=== PATIENT | female | born 1935 | race Caucasian/White ===

== ENCOUNTER 2016-08-06 06:29 | Emergency (ER) | payer OTHER ==
[~2016-08-06] VITALS: Ht 157.4 cm; Wt 59.0 kg
[~2016-08-06 06:29] MED LIST: OCUFLOX 5 ML5 M1 OP; PRED FORTE 5 ML5 ML OP; TIMOLOL MALEAT PO; ZESTRIL20 MG PO; [UNRECOGNIZED DRUG - OTHER] TP
[2016-08-06 06:38] VITALS: BP 146/63
[2016-08-06 07:19] LABS: BASO # 0.1 10*3/uL (0.0-0.1); BASO % 0.7 % (0.0-1.0); EOS # 0.1 10*3/uL (0.0-0.4); EOS % 1.7 % (1.0-4.0); HEMATOCRIT 38.6 % (37.0-47.0); HEMOGLOBIN 13.9 g/dl (12.0-16.0); LYMPH # 1.7 10*3/uL (1.3-4.4); LYMPH % 22.4 % (27.0-41.0); MEAN CELL VOLUME 89.4 fl (81.0-99.0); MEAN CORPUSCULAR HGB 32.2 pg (27.0-31.0); MEAN PLATELET VOLUME 8.8 fl (9.6-12.3); MONO # 0.8 10*3/uL (0.1-1.0); MONO % 11.3 % (3.0-9.0); NEUT # 4.7 10*3/uL (2.3-7.9); NEUT % 63.6 % (47.0-73.0); PLATELET COUNT AUTOMATED 260 10*3/uL (130-400); RED BLOOD COUNT 4.32 10*6/uL (4.10-5.10); RED CELL DISTRI WIDTH 11.9 % (0-14.5); WHITE BLOOD COUNT 7.4 10*3/uL (4.8-10.8)
[2016-08-06 07:35] LABS: ALBUMIN 3.5 gm/dl (3.1-4.5); ALKALINE PHOSPHATASE 54 U/L (45-117); BILIRUBIN, TOTAL 0.5 mg/dl (0.2-1.0); BUN 8 mg/dl (7-24); CARBON DIOXIDE 30 mmol/L (21-32); CHLORIDE 90 mmol/L (98-107); EST GLOM FILT AFRICAN AMERICAN > 60 ml/min; GLUCOSE 113 mg/dL (65-99); POTASSIUM 3.2 mmol/L (3.5-5.1); SGOT/AST 17 IU/L (3-35); SGPT/ALT 21 U/L (12-78); SODIUM 130 mmol/L (136-145); TOTAL PROTEIN 6.8 gm/dL (6.4-8.2)
[2016-08-06] MEDS ORDERED: MIRALAX POWDER17 G1 PO (11:49)
== END 2016-08-06 11:57 | disposition home or self-care (01) ==
LOC: ED 06:29
PROVIDERS: Emergency Medicine
DX: K59.00 Constipation, unspecified (principal); Z90.49 Acquired absence of other specified parts of digestive tract; Z79.899 Other long term (current) drug therapy

== ENCOUNTER 2016-08-17 04:17 | Inpatient (IN) | payer OTHER ==
[~2016-08-17] VITALS: Ht 157.5 cm; Wt 66.0 kg
[2016-08-17] VITALS (8 sets, daily range): BP systolic 106–122; BP diastolic 44–76
--- NOTE | ~2016-08-17 | CON ---
[place], [place] REPORT OF CONSULTATION NAME: DELANO ZAPATA UNIT #: [id number] ROOM: 523 DOCTOR: FRANCESCO ARIASGREG BIRTHDATE: [birth year] DOS: 08/19/2016 GASTROENDOSCOPIC CONSULTATION REPORT HISTORY OF PRESENT ILLNESS: This is an 81-year-old patient, who has presented with chief complaint of gastric abdominal pain and dark stool. The patient has been admitted through the Emergency Room; however, the patient has been experiencing some nausea and vomiting as well. Initial blood work in the Emergency Room showed H and H of 10 and 27. Comprehensive metabolic panel, electrolyte shows severe hyponatremia of 125 and hypokalemia was noticed. Her lipase was 230, phosphorus and magnesium were within normal limits. Her CBC differential shows further drop in H and H to 8 and 23. Iron binding was 295, normal; however, iron level was 33, low ferritin was 333. Her comprehensive metabolic panel was reassessed. Liver function tests remained normal. Phosphorus normal. PAST MEDICAL HISTORY: Constipation. PAST SURGICAL HISTORY: Cholecystectomy, cataract, podiatric, D and C, hysterectomy. MEDICATIONS: List has been reviewed. ALLERGIES: No known medication. FAMILY HISTORY: Noncontributory. REVIEW OF SYSTEMS: HEENT: Denies double vision, blurred vision. RESPIRATORY: Denies shortness of breath. CARDIOVASCULAR: Denies chest pain. DIGESTIVE SYSTEM: Nausea and vomiting. PHYSICAL EXAMINATION: VITAL SIGNS: Stable. HEENT: Head is normocephalic, nontraumatic. Mouth and buccal mucosa are benign. NECK: Supple. No thyromegaly. No cervical lymphadenopathy. CHEST: Symmetric anatomy, equal expansion. No wheeze. No rhonchi. HEART: Normal sinus rhythm, no gallop, no murmur. ABDOMEN: Soft. No hepato-organomegaly. Bowel sounds present. No pulsatile mass. Scars of surgery are noticed. EXTREMITIES: No cyanosis, no pedal edema. NEUROLOGIC: Alert and oriented to time, place, person. IMPRESSION: Severe hyponatremia and associated nausea, epigastric pain. Hypokalemia, status post correction. Gradual drop in hemoglobin and hematocrit. The patient has been on a combination of lisinopril and hydrochlorothiazide. Potassium has been supplemented. Other medications reviewed. [place], [place] REPORT OF CONSULTATION NAME: DELANO ZAPATA UNIT #: [id number] ROOM: 523 DOCTOR: FRANCESCO ARIAS,GREG BIRTHDATE: [birth year] PLAN AND DISCUSSION: We are going to look into the source of nausea, vomiting. In addition to the diuretics that she has been on, furthermore we are going to investigate the source of anemia with endoscopic assessment of upper GI tract and perhaps future colonoscopy as well. Supportive management otherwise as dictated in the chart. GREG MAYA MD CM:CONSTR:REPORT OF CONSULTATION 1602 08/20/16 0552 interface
--- NOTE | ~2016-08-17 | O ---
[place], [place] OPERATIVE NOTE NAME: DELANO ZAPATA UNIT #: [id number] ROOM: 523 DOCTOR: GREG MAYA MD BIRTHDATE: [birth year] DOS: 08/19/2016 GASTROENDOSCOPIC REPORT INDICATIONS: An 81 years old patient who has presented with chief complaint of anemia, drop in H and H to 8 and 24, epigastric distress, consultation has been dictated. PROCEDURE: Today's procedure part of investigation is panendoscopy plus biopsy. PREMEDICATION: Versed and Diprivan. SCOPE: Olympus forward-viewing gastroscope Q10 video. REPORT: After putting the patient in the left lateral position and application of lubricant to the scope, the scope was introduced. Thereafter, under direct visualization, I advanced through the length of the esophagus without difficulty. Esophagus and cervicothoracic distally were carefully examined. Gastric pouch was entered. Ulceration is approximately 1.5 cm in diameter in antrum was identified, photographed. It is well scarred, margin of which was biopsied. Duodenal bulb, second and third part within normal limits. The patient extubated, tolerated procedure well. IMPRESSION: Antral ulcer, status post biopsy. PLAN AND DISCUSSION: We are going to continue with Carafate 1 g q.i.d. at the present time and we will continue with Protonix 40 mg q. day soft diet, clinical reassessment. Follow up on H and H tomorrow. GREG MAYA MD CM:OPRECORD:OPERATIVE NOTE [id number] [id number] RGEG MAYA MD 08/19/162002 interface
[~2016-08-17 04:17] MED LIST changes: +MIRALAX POWDER17 G1 PO
[2016-08-17 04:36] LABS: BASO # 0.1 10*3/uL (0.0-0.1); BASO % 0.5 % (0.0-1.0); EOS % 0.3 % (1.0-4.0); HEMATOCRIT 27.7 % (37.0-47.0); LYMPH # 2.3 10*3/uL (1.3-4.4); LYMPH % 23.1 % (27.0-41.0); MEAN CELL VOLUME 89.1 fl (81.0-99.0); MEAN CORPUSCULAR HGB 32.2 pg (27.0-31.0); MEAN CORPUSCULAR HGB CONC 36.1 g/dl (33.0-37.0); MEAN PLATELET VOLUME 9.1 fl (9.6-12.3); MONO # 0.8 10*3/uL (0.1-1.0); NEUT # 6.6 10*3/uL (2.3-7.9); NEUT % 67.7 % (47.0-73.0); PLATELET COUNT AUTOMATED 245 10*3/uL (130-400); RED BLOOD COUNT 3.11 10*6/uL (4.10-5.10); RED CELL DISTRI WIDTH 12.3 % (0-14.5); WHITE BLOOD COUNT 9.8 10*3/uL (4.8-10.8)
[2016-08-17] MEDS ORDERED: NORVASC10 MG PO (04:41)
[2016-08-17] MEDS ORDERED: Zofran4 MG PO (04:42)
[2016-08-17] MEDS ORDERED: LISINOPRIL HCTZ1 TA1 PO (04:42)
[2016-08-17] MEDS ORDERED: BETIMOL5 M1 OP (04:43)
[2016-08-17 04:51] LABS: ALBUMIN 3.5 gm/dl (3.1-4.5); ALKALINE PHOSPHATASE 49 U/L (45-117); BILIRUBIN, TOTAL 0.6 mg/dl (0.2-1.0); BUN 12 mg/dl (7-24); CARBON DIOXIDE 23 mmol/L (21-32); CHLORIDE 84 mmol/L (98-107); EST GLOM FILT AFRICAN AMERICAN > 60 ml/min; GLUCOSE 166 mg/dL (65-99); POTASSIUM 2.8 mmol/L (3.5-5.1); SGOT/AST 24 IU/L (3-35); SGPT/ALT 24 U/L (12-78); SODIUM 125 mmol/L (136-145); TOTAL PROTEIN 6.4 gm/dL (6.4-8.2)
[2016-08-17] MEDS ORDERED: XALATAN 0.005%2.5 ML OP (06:04)
[2016-08-17 06:27] LABS: MAGNESIUM 1.8 mg/dL (1.5-2.1); PHOSPHOROUS 3.6 mg/dL (2.5-4.9); TROPONIN I 0.028 ng/ml (<0.045)
[2016-08-17 10:04] LABS: BILIRUBIN NEGATIVE (NEGATIVE); BLOOD NEGATIVE (NEGATIVE); CLARITY SL CLOUDY (CLEAR); COLOR YELLOW (YELLOW); GLUCOSE NEGATIVE (NEGATIVE); KETONE NEGATIVE (NEGATIVE); LEUKO ESTERASE NEGATIVE (NEGATIVE); NITRITE NEGATIVE (NEGATIVE); PROTEIN NEGATIVE (NEGATIVE); SPECIFIC GRAVITY <= 1.005 (1.005-1.030)
[2016-08-17 10:20] LABS: BACTERIA 1+; URINE REFLEX COMMENT NO (NO)
[2016-08-17 14:07] LABS: BASO % 0.3 % (0.0-1.0); EOS # 0.1 10*3/uL (0.0-0.4); EOS % 0.5 % (1.0-4.0); HEMATOCRIT 23.8 % (37.0-47.0); HEMOGLOBIN 8.4 g/dl (12.0-16.0); IG # 0.1 10*3/uL (0.0-0.1); MEAN CELL VOLUME 91.5 fl (81.0-99.0); MEAN CORPUSCULAR HGB 32.3 pg (27.0-31.0); MEAN CORPUSCULAR HGB CONC 35.3 g/dl (33.0-37.0); MEAN PLATELET VOLUME 8.7 fl (9.6-12.3); MONO # 0.8 10*3/uL (0.1-1.0); MONO % 8.5 % (3.0-9.0); NEUT # 6.9 10*3/uL (2.3-7.9); PLATELET COUNT AUTOMATED 215 10*3/uL (130-400); RED CELL DISTRI WIDTH 12.4 % (0-14.5); WHITE BLOOD COUNT 9.8 10*3/uL (4.8-10.8)
[2016-08-17 14:33] LABS: BUN 13 mg/dl (7-24); CARBON DIOXIDE 25 mmol/L (21-32); CHLORIDE 89 mmol/L (98-107); EST GLOM FILT AFRICAN AMERICAN > 60 ml/min; GLUCOSE 99 mg/dL (65-99); POTASSIUM 3.7 mmol/L (3.5-5.1); SODIUM 123 mmol/L (136-145)
[2016-08-18] VITALS: BP 115/44
[2016-08-18 07:22] LABS: BASO % 0.4 % (0.0-1.0); EOS # 0.2 10*3/uL (0.0-0.4); EOS % 2.4 % (1.0-4.0); HEMATOCRIT 23.2 % (37.0-47.0); LYMPH # 2.1 10*3/uL (1.3-4.4); LYMPH % 27.9 % (27.0-41.0); MEAN CELL VOLUME 92.8 fl (81.0-99.0); MEAN CORPUSCULAR HGB CONC 34.5 g/dl (33.0-37.0); MEAN PLATELET VOLUME 9.2 fl (9.6-12.3); MONO # 0.7 10*3/uL (0.1-1.0); NEUT # 4.5 10*3/uL (2.3-7.9); NEUT % 59.9 % (47.0-73.0); PLATELET COUNT AUTOMATED 214 10*3/uL (130-400); RED CELL DISTRI WIDTH 12.6 % (0-14.5); WHITE BLOOD COUNT 7.5 10*3/uL (4.8-10.8)
[2016-08-18 07:33] LABS: ALBUMIN 2.8 gm/dl (3.1-4.5); BUN 11 mg/dl (7-24); CARBON DIOXIDE 27 mmol/L (21-32); CHLORIDE 95 mmol/L (98-107); EST GLOM FILT AFRICAN AMERICAN > 60 ml/min; GLUCOSE 106 mg/dL (65-99); POTASSIUM 3.6 mmol/L (3.5-5.1); SGOT/AST 23 IU/L (3-35); SGPT/ALT 20 U/L (12-78); SODIUM 128 mmol/L (136-145)
[2016-08-18 07:36] LABS: ALKALINE PHOSPHATASE 41 U/L (45-117); BILIRUBIN, TOTAL 0.5 mg/dl (0.2-1.0); PHOSPHOROUS 2.4 mg/dL (2.5-4.9); TOTAL PROTEIN 5.5 gm/dL (6.4-8.2)
[2016-08-18 08:00] VITALS: BP 140/58
[2016-08-18 12:40] LABS: IRON 33 ug/dL (50-170); IRON SATURATION 11 %; UIBC 262 ug/dL (110-365)
[2016-08-18 12:55] VITALS: BP 101/44
[2016-08-18 16:00] VITALS: BP 135/52
[2016-08-18 20:00] VITALS: BP 145/56
[2016-08-19] VITALS (8 sets, daily range): BP systolic 98–156; BP diastolic 49–65
[2016-08-19 06:34] LABS: BASO % 0.6 % (0.0-1.0); EOS # 0.3 10*3/uL (0.0-0.4); EOS % 3.9 % (1.0-4.0); HEMATOCRIT 23.3 % (37.0-47.0); HEMOGLOBIN 8.2 g/dl (12.0-16.0); LYMPH # 1.8 10*3/uL (1.3-4.4); LYMPH % 26.3 % (27.0-41.0); MEAN CELL VOLUME 92.8 fl (81.0-99.0); MEAN CORPUSCULAR HGB 32.7 pg (27.0-31.0); MEAN CORPUSCULAR HGB CONC 35.2 g/dl (33.0-37.0); MEAN PLATELET VOLUME 9.4 fl (9.6-12.3); MONO # 0.8 10*3/uL (0.1-1.0); MONO % 10.9 % (3.0-9.0); NEUT % 57.7 % (47.0-73.0); PLATELET COUNT AUTOMATED 238 10*3/uL (130-400); RED BLOOD COUNT 2.51 10*6/uL (4.10-5.10); RED CELL DISTRI WIDTH 13.1 % (0-14.5)
[2016-08-19 06:43] LABS: BUN 9 mg/dl (7-24); CARBON DIOXIDE 24 mmol/L (21-32); CHLORIDE 102 mmol/L (98-107); EST GLOM FILT AFRICAN AMERICAN > 60 ml/min; GLUCOSE 97 mg/dL (65-99); SODIUM 132 mmol/L (136-145)
[2016-08-20] VITALS (13 sets, daily range): BP systolic 101–146; BP diastolic 41–64
[2016-08-20 05:50] LABS: BASO % 0.4 % (0.0-1.0); EOS # 0.2 10*3/uL (0.0-0.4); EOS % 2.8 % (1.0-4.0); HEMATOCRIT 22.2 % (37.0-47.0); HEMOGLOBIN 7.5 g/dl (12.0-16.0); LYMPH # 1.9 10*3/uL (1.3-4.4); LYMPH % 27.9 % (27.0-41.0); MEAN CELL VOLUME 94.1 fl (81.0-99.0); MEAN CORPUSCULAR HGB 31.8 pg (27.0-31.0); MEAN CORPUSCULAR HGB CONC 33.8 g/dl (33.0-37.0); MEAN PLATELET VOLUME 9.1 fl (9.6-12.3); MONO # 0.7 10*3/uL (0.1-1.0); MONO % 9.8 % (3.0-9.0); NEUT % 58.7 % (47.0-73.0); PLATELET COUNT AUTOMATED 230 10*3/uL (130-400); RED BLOOD COUNT 2.36 10*6/uL (4.10-5.10); RED CELL DISTRI WIDTH 13.2 % (0-14.5); WHITE BLOOD COUNT 6.8 10*3/uL (4.8-10.8)
[2016-08-20 06:11] LABS: BUN 6 mg/dl (7-24); CARBON DIOXIDE 27 mmol/L (21-32); CHLORIDE 101 mmol/L (98-107); EST GLOM FILT AFRICAN AMERICAN > 60 ml/min; GLUCOSE 99 mg/dL (65-99); POTASSIUM 3.3 mmol/L (3.5-5.1); SODIUM 136 mmol/L (136-145)
[2016-08-21] VITALS: BP 163/73
[2016-08-21 06:02] LABS: BASO % 0.3 % (0.0-1.0); EOS # 0.4 10*3/uL (0.0-0.4); EOS % 3.4 % (1.0-4.0); IG # 0.1 10*3/uL (0.0-0.1); LYMPH # 1.8 10*3/uL (1.3-4.4); LYMPH % 15.6 % (27.0-41.0); MEAN CORPUSCULAR HGB CONC 35.5 g/dl (33.0-37.0); MEAN PLATELET VOLUME 8.9 fl (9.6-12.3); MONO # 0.6 10*3/uL (0.1-1.0); MONO % 5.1 % (3.0-9.0); NEUT # 8.8 10*3/uL (2.3-7.9); NEUT % 75.2 % (47.0-73.0); NUCLEATED RED BLOOD CELL 0.3 % (0.0-0.0); PLATELET COUNT AUTOMATED 188 10*3/uL (130-400); RED BLOOD COUNT 3.25 10*6/uL (4.10-5.10); RED CELL DISTRI WIDTH 14.5 % (0-14.5); WHITE BLOOD COUNT 11.7 10*3/uL (4.8-10.8)
[2016-08-21 06:08] LABS: HEMATOCRIT 29.3 % (37.0-47.0); HEMOGLOBIN 10.4 g/dl (12.0-16.0); MEAN CELL VOLUME 90.2 fl (81.0-99.0)
[2016-08-21 08:00] VITALS: BP 145/67
[2016-08-21] MEDS ORDERED: Carafate1 GM PO (11:05)
[2016-08-21] MEDS ORDERED: PROTONIX40 M1 IV (11:05)
[2016-08-21] MEDS ORDERED: FEROSUL325 M1 PO (11:07)
[2016-08-21] MEDS ORDERED: PROTONIX TR40 M1 PO (11:33)
== END 2016-08-21 16:00 | disposition home or self-care (01) | DRG 378 ==
LOC: ED 04:17 → EDHOLD 05:08 → 5E 05:08
PROVIDERS: Emergency Medicine; Hospitalist; Internal Medicine
PROC: 30233N1 Transfusion of Nonautologous Red Blood Cells into Peripheral Vein, Percutaneous Approach (ICD-10-PCS; principal; 2016-08-17)
PROC: 0DB68ZX Excision of Stomach, Via Natural or Artificial Opening Endoscopic, Diagnostic (ICD-10-PCS; 2016-08-19)
DX: K25.0 Acute gastric ulcer with hemorrhage (principal); E87.1 Hypo-osmolality and hyponatremia; E86.0 Dehydration; D64.9 Anemia, unspecified; E87.6 Hypokalemia; R73.9 Hyperglycemia, unspecified; I10 Essential (primary) hypertension; H40.9 Unspecified glaucoma; E61.1 Iron deficiency; Z90.710 Acquired absence of both cervix and uterus; Z90.49 Acquired absence of other specified parts of digestive tract; Z98.49 Cataract extraction status, unspecified eye; Z82.3 Family history of stroke; Z79.899 Other long term (current) drug therapy

== ENCOUNTER 2018-09-25 10:13 | Emergency (ER) | payer OTHER ==
[~2018-09-25] VITALS: Ht 157.4 cm; Wt 57.6 kg
[~2018-09-25 10:13] MED LIST changes: +BETIMOL5 M1 OP; +Carafate1 GM PO; +FEROSUL325 M1 PO; +LISINOPRIL HCTZ1 TA1 PO; +NORVASC10 MG PO; +PROTONIX TR40 M1 PO; +PROTONIX40 M1 IV; +XALATAN 0.005%2.5 ML OP; +Zofran4 MG PO
[2018-09-25 12:37] VITALS: BP 150/74
[2018-09-25] MEDS ORDERED: NORCO 5-325 TA1 EACH PO (13:06)
== END 2018-09-25 13:09 | disposition home or self-care (01) ==
LOC: ED 10:13
DX: S52.615A Nondisplaced fracture of left ulna styloid process, initial encounter for closed fracture (principal); Z79.899 Other long term (current) drug therapy; Z90.710 Acquired absence of both cervix and uterus; Z90.49 Acquired absence of other specified parts of digestive tract; W18.09XA Striking against other object with subsequent fall, initial encounter; Y93.89 Activity, other specified; Y92.89 Other specified places as the place of occurrence of the external cause; Y99.8 Other external cause status

== ENCOUNTER 2020-04-02 08:53 | Inpatient (IN) | payer OTHER ==
[~2020-04-02] VITALS: Ht 157.4 cm; Wt 55.3 kg
[~2020-04-02 08:53] MED LIST changes: +NORCO 5-325 TA1 EACH PO
[2020-04-02 09:15] VITALS: BP 114/60
[2020-04-02 10:53] LABS: BILIRUBIN Negative (Negative); BLOOD Trace-Lysed (Negative); CLARITY Clear (Clear); COLOR Yellow (Yellow); GLUCOSE Negative (Negative); KETONE Negative (Negative); LEUKO ESTERASE Trace (Negative); NITRITE Negative (Negative); PH 6.5 (4.5-8.0); SPECIFIC GRAVITY 1.015 (1.001-1.030); UROBILINOGEN 0.2 E.U./dl (0.0-1.0)
[2020-04-02 11:15] LABS: BACTERIA 1+
[2020-04-02 11:40] LABS: BASO % 0.2 % (0.0-1.0); EOS % 0.1 % (1.0-4.0); HEMATOCRIT 36.4 % (37.0-47.0); LYMPH # 1.5 10*3/uL (1.3-4.4); LYMPH % 13.4 % (27.0-41.0); MEAN CELL VOLUME 90.1 fl (81.0-99.0); MEAN CORPUSCULAR HGB 30.9 pg (27.0-31.0); MEAN CORPUSCULAR HGB CONC 34.3 g/dl (33.0-37.0); MEAN PLATELET VOLUME 9.1 fl (9.6-12.3); MONO % 8.5 % (3.0-9.0); NEUT # 8.8 10*3/uL (2.3-7.9); PLATELET COUNT AUTOMATED 208 10*3/uL (130-400); RED BLOOD COUNT 4.04 10*6/uL (4.10-5.10); RED CELL DISTRI WIDTH 11.9 % (0-14.5); WHITE BLOOD COUNT 11.4 10*3/uL (4.8-10.8)
[2020-04-02 11:57] LABS: BUN 42 mg/dl (7-24); CHLORIDE 87 mmol/L (98-107); CPK 150 U/L (26-192); CREATININE 1.36 mg/dL (0.55-1.02); SODIUM 125 mmol/L (136-145); TROPONIN I < 0.015 ng/ml (<0.045)
[2020-04-02 13:13] LABS: ALBUMIN 3.2 gm/dl (3.1-4.5); BILIRUBIN, DIRECT 0.3 mg/dL (0.0-0.2); TOTAL PROTEIN 7.7 gm/dL (6.4-8.2)
[2020-04-02 16:15] VITALS: BP 144/78; BP 144/80
[2020-04-02 16:29] LABS: CREATININE 1.21 mg/dL (0.55-1.02); POTASSIUM 3.3 mmol/L (3.5-5.1)
[2020-04-02 19:33] LABS: ARTERIAL BLOOD GAS PH 7.211 (7.35-7.45)
[2020-04-02 19:34] LABS: ABG BASE EXCESS -8.7 mmol/L (-2.0-2.0)
[2020-04-02 19:38] LABS: BASO % 0.3 % (0.0-1.0); EOS % 0.2 % (1.0-4.0); HEMATOCRIT 40.1 % (37.0-47.0); LYMPH # 4.6 10*3/uL (1.3-4.4); MEAN CORPUSCULAR HGB 30.9 pg (27.0-31.0); MEAN CORPUSCULAR HGB CONC 32.2 g/dl (33.0-37.0); MEAN PLATELET VOLUME 9.3 fl (9.6-12.3); MONO # 0.9 10*3/uL (0.1-1.0); MONO % 7.3 % (3.0-9.0); NEUT # 6.4 10*3/uL (2.3-7.9); NEUT % 53.2 % (47.0-73.0); PLATELET COUNT AUTOMATED 213 10*3/uL (130-400); RED BLOOD COUNT 4.18 10*6/uL (4.10-5.10); WHITE BLOOD COUNT 12.1 10*3/uL (4.8-10.8)
[2020-04-02 19:39] LABS: MEAN CELL VOLUME 95.9 fl (81.0-99.0)
[2020-04-02 19:54] LABS: ALBUMIN 3.2 gm/dl (3.1-4.5); CREATININE 1.88 mg/dL (0.55-1.02); POTASSIUM 2.9 mmol/L (3.5-5.1); TOTAL PROTEIN 7.8 gm/dL (6.4-8.2)
[2020-04-02 20:06] LABS: ARTERIAL BLOOD GAS PH 7.278 (7.35-7.45)
[2020-04-02 20:09] LABS: ABG BASE EXCESS -9.4 mmol/L (-2.0-2.0)
[2020-04-03] VITALS (7 sets, daily range): BP systolic 77–106; BP diastolic 44–63
[2020-04-03 00:24] LABS: CREATININE 2.38 mg/dL (0.55-1.02); POTASSIUM 3.5 mmol/L (3.5-5.1)
[2020-04-03 04:17] LABS: BASO % 0.1 % (0.0-1.0); HEMATOCRIT 39.1 % (37.0-47.0); MEAN CELL VOLUME 92.9 fl (81.0-99.0); MEAN CORPUSCULAR HGB 31.6 pg (27.0-31.0); MEAN PLATELET VOLUME 9.3 fl (9.6-12.3); MONO # 0.8 10*3/uL (0.1-1.0); MONO % 4.4 % (3.0-9.0); NEUT # 17.2 10*3/uL (2.3-7.9); PLATELET COUNT AUTOMATED 188 10*3/uL (130-400); RED BLOOD COUNT 4.21 10*6/uL (4.10-5.10); RED CELL DISTRI WIDTH 12.2 % (0-14.5); WHITE BLOOD COUNT 19.1 10*3/uL (4.8-10.8)
[2020-04-03 04:29] LABS: PLATELET SUFFICIENCY NORMAL (NORMAL); TOTAL CELLS COUNTED 100 #CELLS
[2020-04-03 04:37] LABS: ALBUMIN 3.7 gm/dl (3.1-4.5); CREATININE 2.57 mg/dL (0.55-1.02); POTASSIUM 3.5 mmol/L (3.5-5.1); TOTAL PROTEIN 7.9 gm/dL (6.4-8.2)
[2020-04-03 04:38] LABS: FREE T4 1.51 ng/dl (0.76-1.46)
[2020-04-03 04:43] LABS: THYROID STIM HORMONE (HS) 3.18 uIU/ml (0.358-4.75)
[2020-04-03 07:35] LABS: VITAMIN D, 25-HYDROXY 11.8 ng/mL (30-100)
[2020-04-03 12:52] LABS: BASO % 0.1 % (0.0-1.0); HEMATOCRIT 37.2 % (37.0-47.0); LYMPH # 0.8 10*3/uL (1.3-4.4); LYMPH % 4.8 % (27.0-41.0); MEAN CELL VOLUME 90.3 fl (81.0-99.0); MEAN CORPUSCULAR HGB 31.6 pg (27.0-31.0); MEAN CORPUSCULAR HGB CONC 34.9 g/dl (33.0-37.0); MEAN PLATELET VOLUME 9.3 fl (9.6-12.3); MONO % 6.4 % (3.0-9.0); NEUT # 14.1 10*3/uL (2.3-7.9); NEUT % 88.3 % (47.0-73.0); PLATELET COUNT AUTOMATED 195 10*3/uL (130-400); RED BLOOD COUNT 4.12 10*6/uL (4.10-5.10); RED CELL DISTRI WIDTH 12.1 % (0-14.5)
[2020-04-03 18:35] LABS: HEMATOCRIT 28.8 % (37.0-47.0)
[2020-04-04] VITALS: BP 99/54
[2020-04-04 00:20] LABS: HEMATOCRIT 32.3 % (37.0-47.0)
[2020-04-04 00:33] LABS: CREATININE 2.98 mg/dL (0.55-1.02); POTASSIUM 3.3 mmol/L (3.5-5.1)
[2020-04-04 06:25] LABS: HEMATOCRIT 33.9 % (37.0-47.0)
[2020-04-04 06:46] LABS: CREATININE 2.86 mg/dL (0.55-1.02); POTASSIUM 3.3 mmol/L (3.5-5.1)
[2020-04-04 08:00] VITALS: BP 85/43
[2020-04-04 12:00] VITALS: BP 125/55
[2020-04-04 12:22] LABS: CREATININE 2.92 mg/dL (0.55-1.02); POTASSIUM 3.5 mmol/L (3.5-5.1)
[2020-04-04 16:00] VITALS: BP 120/50
[2020-04-04 18:20] LABS: CREATININE 2.63 mg/dL (0.55-1.02); POTASSIUM 3.1 mmol/L (3.5-5.1)
[2020-04-04 20:00] VITALS: BP 95/52
[2020-04-05] VITALS: BP 99/47
[2020-04-05 06:13] LABS: BASO % 0.1 % (0.0-1.0); EOS % 0.1 % (1.0-4.0); HEMATOCRIT 28.6 % (37.0-47.0); LYMPH # 1.2 10*3/uL (1.3-4.4); LYMPH % 9.7 % (27.0-41.0); MEAN CORPUSCULAR HGB 31.5 pg (27.0-31.0); MEAN CORPUSCULAR HGB CONC 34.3 g/dl (33.0-37.0); MONO # 0.7 10*3/uL (0.1-1.0); MONO % 5.4 % (3.0-9.0); NEUT # 10.7 10*3/uL (2.3-7.9); NEUT % 83.2 % (47.0-73.0); PLATELET COUNT AUTOMATED 177 10*3/uL (130-400); RED BLOOD COUNT 3.11 10*6/uL (4.10-5.10); RED CELL DISTRI WIDTH 12.4 % (0-14.5); WHITE BLOOD COUNT 12.8 10*3/uL (4.8-10.8)
[2020-04-05 06:50] LABS: ALBUMIN 4.5 gm/dl (3.1-4.5); CREATININE 2.56 mg/dL (0.55-1.02); POTASSIUM 3.1 mmol/L (3.5-5.1); TOTAL PROTEIN 7.1 gm/dL (6.4-8.2)
[2020-04-05 08:00] VITALS: BP 107/50
[2020-04-05 12:00] VITALS: BP 117/56
[2020-04-05 14:44] LABS: BASO % 0.1 % (0.0-1.0); EOS % 0.1 % (1.0-4.0); HEMATOCRIT 34.5 % (37.0-47.0); LYMPH # 1.2 10*3/uL (1.3-4.4); LYMPH % 10.5 % (27.0-41.0); MEAN CELL VOLUME 91.8 fl (81.0-99.0); MEAN CORPUSCULAR HGB 31.1 pg (27.0-31.0); MEAN CORPUSCULAR HGB CONC 33.9 g/dl (33.0-37.0); MEAN PLATELET VOLUME 9.7 fl (9.6-12.3); MONO # 0.4 10*3/uL (0.1-1.0); MONO % 3.8 % (3.0-9.0); PLATELET COUNT AUTOMATED 226 10*3/uL (130-400); RED BLOOD COUNT 3.76 10*6/uL (4.10-5.10); RED CELL DISTRI WIDTH 12.4 % (0-14.5); WHITE BLOOD COUNT 11.7 10*3/uL (4.8-10.8)
[2020-04-05 16:00] VITALS: BP 101/55
[2020-04-05 20:00] VITALS: BP 114/58
[2020-04-06] VITALS: BP 124/61
[2020-04-06 07:03] LABS: BASO % 0.1 % (0.0-1.0); EOS % 0.2 % (1.0-4.0); HEMATOCRIT 31.7 % (37.0-47.0); LYMPH # 0.9 10*3/uL (1.3-4.4); LYMPH % 8.9 % (27.0-41.0); MEAN CELL VOLUME 90.3 fl (81.0-99.0); MEAN CORPUSCULAR HGB 31.1 pg (27.0-31.0); MEAN CORPUSCULAR HGB CONC 34.4 g/dl (33.0-37.0); MEAN PLATELET VOLUME 9.5 fl (9.6-12.3); MONO # 0.6 10*3/uL (0.1-1.0); MONO % 6.1 % (3.0-9.0); NEUT # 8.7 10*3/uL (2.3-7.9); NEUT % 84.3 % (47.0-73.0); PLATELET COUNT AUTOMATED 225 10*3/uL (130-400); RED BLOOD COUNT 3.51 10*6/uL (4.10-5.10); RED CELL DISTRI WIDTH 12.4 % (0-14.5); WHITE BLOOD COUNT 10.3 10*3/uL (4.8-10.8)
[2020-04-06 07:28] LABS: POTASSIUM 3.3 mmol/L (3.5-5.1)
[2020-04-06 07:30] LABS: CREATININE 2.32 mg/dL (0.55-1.02)
[2020-04-06 08:00] VITALS: BP 119/73
[2020-04-06 12:00] VITALS: BP 125/64
[2020-04-06 16:00] VITALS: BP 132/68
[2020-04-06 20:00] VITALS: BP 132/66
[2020-04-07] VITALS: BP 143/79
[2020-04-07 06:42] LABS: ALBUMIN 4.4 gm/dl (3.1-4.5); CREATININE 1.7 mg/dL (0.55-1.02); POTASSIUM 3.4 mmol/L (3.5-5.1); TOTAL PROTEIN 7.4 gm/dL (6.4-8.2)
[2020-04-07 06:43] LABS: BASO % 0.1 % (0.0-1.0); EOS % 0.3 % (1.0-4.0); HEMATOCRIT 32.6 % (37.0-47.0); LYMPH % 10.3 % (27.0-41.0); MEAN CELL VOLUME 90.3 fl (81.0-99.0); MEAN CORPUSCULAR HGB 30.5 pg (27.0-31.0); MEAN CORPUSCULAR HGB CONC 33.7 g/dl (33.0-37.0); MEAN PLATELET VOLUME 9.8 fl (9.6-12.3); MONO # 0.9 10*3/uL (0.1-1.0); MONO % 9.3 % (3.0-9.0); NEUT # 7.5 10*3/uL (2.3-7.9); NEUT % 79.5 % (47.0-73.0); PLATELET COUNT AUTOMATED 259 10*3/uL (130-400); RED BLOOD COUNT 3.61 10*6/uL (4.10-5.10); RED CELL DISTRI WIDTH 12.3 % (0-14.5); WHITE BLOOD COUNT 9.5 10*3/uL (4.8-10.8)
[2020-04-07 08:00] VITALS: BP 143/65
[2020-04-07 12:00] VITALS: BP 138/67
[2020-04-07 16:00] VITALS: BP 124/58
[2020-04-07 20:00] VITALS: BP 122/58
[2020-04-08] VITALS (9 sets, daily range): BP systolic 84–156; BP diastolic 46–90
[2020-04-08 07:35] LABS: ALBUMIN 4.6 gm/dl (3.1-4.5); CREATININE 1.22 mg/dL (0.55-1.02); POTASSIUM 3.1 mmol/L (3.5-5.1)
[2020-04-09] VITALS: BP 133/70
[2020-04-09 08:00] VITALS: BP 145/86
[2020-04-09 09:42] LABS: CREATININE 1.08 mg/dL (0.55-1.02); POTASSIUM 3.3 mmol/L (3.5-5.1)
[2020-04-09] MEDS ORDERED: PROTONIX40 MG PO (11:44)
[2020-04-09] MEDS ORDERED: ELIQUIS5 M1 PO (11:44)
[2020-04-09] MEDS ORDERED: ATORVASTATIN CA40 M1 PO (11:44)
[2020-04-09] MEDS ORDERED: Carafate1 GM PO (11:44)
[2020-04-09 12:00] VITALS: BP 139/80
== END 2020-04-09 17:10 | disposition other institution (70) | DRG 377 ==
LOC: ED 08:53 → EDHOLD 12:09 → 5E 12:09
PROVIDERS: Emergency Medicine; Internal Medicine; Registered Nurse; Student in an Organized Health Care Education/Training Program; ADMIT Internal Medicine; ATTEND Internal Medicine
PROC: 5A09357 Assistance with Respiratory Ventilation, Less than 24 Consecutive Hours, Continuous Positive Airway Pressure (ICD-10-PCS; 2020-04-03)
PROC: 5A0935A Assistance with Respiratory Ventilation, Less than 24 Consecutive Hours, High Flow/Velocity Cannula (ICD-10-PCS; 2020-04-03)
PROC: 05HY33Z Insertion of Infusion Device into Upper Vein, Percutaneous Approach (ICD-10-PCS; 2020-04-03)
PROC: 5A0935A Assistance with Respiratory Ventilation, Less than 24 Consecutive Hours, High Flow/Velocity Cannula (ICD-10-PCS; 2020-04-04)
PROC: 5A09357 Assistance with Respiratory Ventilation, Less than 24 Consecutive Hours, Continuous Positive Airway Pressure (ICD-10-PCS; 2020-04-07)
PROC: 0D758ZZ Dilation of Esophagus, Via Natural or Artificial Opening Endoscopic (ICD-10-PCS; principal; 2020-04-08)
PROC: 0DB68ZX Excision of Stomach, Via Natural or Artificial Opening Endoscopic, Diagnostic (ICD-10-PCS; 2020-04-08)
PROC: 5A09357 Assistance with Respiratory Ventilation, Less than 24 Consecutive Hours, Continuous Positive Airway Pressure (ICD-10-PCS; 2020-04-08)
PROC: 5A09357 Assistance with Respiratory Ventilation, Less than 24 Consecutive Hours, Continuous Positive Airway Pressure (ICD-10-PCS; 2020-04-09)
DX: K29.71 Gastritis, unspecified, with bleeding (principal); J96.01 Acute respiratory failure with hypoxia; I26.99 Other pulmonary embolism without acute cor pulmonale; I21.4 Non-ST elevation (NSTEMI) myocardial infarction; N17.9 Acute kidney failure, unspecified; E87.1 Hypo-osmolality and hyponatremia; E87.2 Acidosis; E44.0 Moderate protein-calorie malnutrition; K29.81 Duodenitis with bleeding; K44.9 Diaphragmatic hernia without obstruction or gangrene; K22.2 Esophageal obstruction; E86.0 Dehydration; H40.9 Unspecified glaucoma; R62.7 Adult failure to thrive; E87.6 Hypokalemia; Z20.822 Contact with and (suspected) exposure to COVID-19; I10 Essential (primary) hypertension; I95.9 Hypotension, unspecified; Z90.49 Acquired absence of other specified parts of digestive tract; Z90.710 Acquired absence of both cervix and uterus; Z82.3 Family history of stroke; E87.5 Hyperkalemia; Z79.899 Other long term (current) drug therapy; Z79.1 Long term (current) use of non-steroidal anti-inflammatories (NSAID); Z68.21 Body mass index [BMI] 21.0-21.9, adult